=== PATIENT | female | born 1960 | race Caucasian/White ===

== ENCOUNTER 2023-06-29 09:18 | Observation (INO) ==
--- NOTE | 2023-06-08 11:10 | PAT Medication Instructions ---
Medication Instructions Date of Service June 08, 2023 Home Medications Medication Instructions Recorded blood sugar diagnostic (ChristineTouch #100 ea 12/21/21 Verio test strips) lancets 33 gauge (OneTouch Delica #100 ea 12/21/21 Lancets) hydrocortisone 1 % topical cream 1 applic topical TID PRN skin 04/26/22 (Anti-Itch (hydrocortisone)) irritation #28.4 grams metformin 1,000 mg tablet 1,000 mg PO BID #180 tabs 04/17/23 hydrocortisone 1 % topical cream (Anti-Itch (hydrocortisone)) 1 applic topical TID PRN skin irritation metformin 1,000 mg tablet 1,000 mg PO BID atorvastatin 10 mg tablet 10 mg PO Q OTHER DAY empagliflozin 25 mg tablet (Jardiance) 25 mg PO QAM lisinopril 2.5 mg tablet 2.5 mg PO QAM meloxicam 7.5 mg tablet See Rx Instructions PO DAILY PRN Pain triamcinolone acetonide 0.1 % topical ointment 1 applic topical BID PRN Rash Continue as directed atorvastatin 10 mg tablet 10 mg PO Q OTHER DAY ASK your surgeon for instructions meloxicam 7.5 mg tablet See Rx Instructions PO DAILY PRN Pain STOP taking 3 days before surgery empagliflozin 25 mg tablet (Jardiance) 25 mg PO QAM STOP taking 24 hours before surgery hydrocortisone 1 % topical cream (Anti-Itch (hydrocortisone)) 1 applic topical TID PRN skin irritation triamcinolone acetonide 0.1 % topical ointment 1 applic topical BID PRN Rash DO NOT take the morning of surgery metformin 1,000 mg tablet 1,000 mg PO BID lisinopril 2.5 mg tablet 2.5 mg PO QAM Take evening before surgery metformin 1,000 mg tablet 1,000 mg PO BID OTHERWISE NOTHING TO EAT OR DRINK AFTER MIDNIGHT Other Notes If you have any questions please call us at [phone] or [phone] or [phone] or [phone]
--- NOTE | 2023-06-13 12:53 | Anesthesiology Consultation ---
Date of Service June 13, 2023 Assessment & Plan (1) Encounter for pre-operative examination: Chart Review Chart Review: Acceptable Risk for Surgery and Patient seen in Pre Admission Testing - Check BSG AM DOS Pt currently scheduled as 23 hours observation. If surgeon decides to change patient to [facility] Day [facility], patient would be acceptable risk for TSA, pending patient is motivated, has good support and surgeon's office completes [facility] preop requirements. Per PAT appt on 06/13/23, no recent illness/disease exposures, illness related symptoms, or recent illness/disease positive tests. Will leave to surgeon's discretion if preop Covid testing needed Seen by endocrinology 06/27/21= patient seen for telemedicine visit for follow up on thyroid nodules and adrenal nodule. Thyroid nodules for more than 10 years. History of thyroid FNA multiple timesbenign. Ultrasound in 2015 showed stable thyroid nodules. Patient has had 3 CT abdomen scans done in 2008, 2009 and 2014adrenal adenoma stable in size and was consistent with adenoma. 24-hour urine catecholamines were done in 2007were normal. Diabetes managed by PCP. Will check thyroid levels. Repeat thyroid ultrasound in 1 year. No need for repeat imaging for right adrenal adenoma as it was stable on [address] scans. Do 24-hour urine metanephrines, catecholamines and creatinine. (24 hour urine metanephrines, catecholamines and creatinine done 01/2022- all WNL; thyroid ultrasound 01/2022 showed stable nodules) Teaching & Discussion Pre-Anesthesia Teaching/Discussion Notes: Instructed NPO after midnight before surgery,except medications with 15 cc of water. Medication instructions provided according to the PAT guidelines. History Surgery Operation Date: 06/29/23 08:00 Proposed Procedures p Left Total Shoulder Arthroplasty Celine - Justin Felipe, Height/Weight Height: 5 ft 5 in Weight: 76.204 kg Allergies Allergy/AdvReac Type Severity Reaction Status Date / Time morphine AdvReac Unknown Unknown Verified 06/07/23 12:24 Medications Home Medications Medication Instructions Recorded Confirmed Last Taken blood sugar diagnostic (OneTouch #100 ea 12/21/21 04/17/23 Unknown Verio test strips) lancets 33 gauge (OneTouch Delica #100 ea 12/21/21 04/17/23 Unknown Lancets) hydrocortisone 1 % topical cream 1 applic topical TID PRN skin 04/26/22 06/07/23 Unknown (Anti-Itch (hydrocortisone)) irritation #28.4 grams metformin 1,000 mg tablet 1,000 mg PO BID #180 tabs 04/17/23 06/07/23 Unknown atorvastatin 10 mg tablet 10 mg PO Q OTHER DAY 06/07/23 06/07/23 Unknown empagliflozin 25 mg tablet 25 mg PO QAM 06/07/23 06/07/23 Unknown (Jardiance) lisinopril 2.5 mg tablet 2.5 mg PO QAM 06/07/23 06/07/23 Unknown meloxicam 7.5 mg tablet See Rx Instructions PO DAILY PRN 06/07/23 06/07/23 Unk nown Pain triamcinolone acetonide 0.1 % 1 applic topical BID PRN Rash 06/07/23 06/07/23 Unknown topical ointment Past Medical History Medical History (Updated 06/13/23 @ 15:00 by Blanca Ventura PA-C) Adrenal adenoma - just monitoring - no longer following with endocrine - has had work up with 24 hour urine metanephrines, catecholamines, and creatinine (01/2022 all WNL) Arm numbness related to rotator cuff Diabetes mellitus Hgb A1C 6.6 in 04/2023 History of COVID-24 Apr 2022- no current issues HLD (hyperlipidemia) On statin for DM Denies history of hyperlipidemia Hypertension Mass of soft tissue of left upper extremity related to rotator cuff Multinodular thyroid just monitoring > biopsy was benign (was following with endocrine) (nodules have stayed stable in size) Rotator cuff tear at present Exercise / Class Metabolic Activity II 4-5 Yardwork/Stairs/Walk up hill (one flight of stairs - no chest pain or SOB ) Past Family History Family History Mother Asthma Cancer basal cell Heart disease Grandmother (Maternal) Heart disease Grandfather (Paternal) Heart disease Aunt Breast cancer Past Surgical History Surgical History H/O colonoscopy H/O dilation and curettage H/O total hysterectomy still has 1 ovary H/O tubal ligation H/O umbilical hernia repair History of bunionectomy of right great toe History of section twins History of esophagogastroduodenoscopy History of surgery of liver tumor removal at Hx of cholecystectomy Status post right foot surgery hammertoe correction R 5th toe Past Anesthesia History No Hx of Anesthesia Complications and No Family Hx of Anesthesia Complications History of PONV No Hx of PONV and No Hx of Motion Sickness Social History Smoking Status: Former smoker Do You Dip or Chew Tobacco: No Smoking End Date: 30 yrs ago Hx Alcohol Use: Yes Alcohol type: wine alcohol intake frequency: holidays/special occasions only Hx Substance Use: No substance use type: does not use Review of Systems - Chronic mild cough- feels due to allergies (non productive) (only occ) Patient denies chest pain, shortness of breath, dyspnea on exertion, reflux, wheezing, palpitations. No hx of seizures, stroke, OK, apnea/snoring. No hx of blood clots or blood transfusions Physical Exam Vital Signs VITALS BP 131/72 P 79 TEMP 98.1 SP02 96% RESP 16 Constitutional no acute distress ENMT Mouth: no TMJ clicking Thyromental Distance: > or= 3.5 Finger Breadths (3.5) Mallampati Class: III Missing molars Neck neck extension not limited Respiratory normal respiratory effort; no respiratory distress Auscultation: lungs clear to auscultation bilaterally; no wheezes Cardiovascular Rate/Rhythm: regular rate and regular rhythm Heart Sounds: no murmur Vessels: no carotid bruit Musculoskeletal Spine: no pain with cervical ROM Extremities: extremities normal to inspection Psychiatric Orientation: alert Lab Results Anesthesia Preop Results Results Anesthesia Widget: WBC 8.65 K/ul (4.8-10.8) 06/13/23 Hgb 14.8 g/dl (12.0-16.0) 06/13/23 Hct 47.0 % (37.0-47.0) 06/13/23 Plt 279 K/uL (130-400) 06/13/23 Na 140 mmol/L (136-145) 06/13/23 K 4.9 mmol/L (3.5-5.1) 06/13/23 Cl 106 mmol/L (98-107) 06/13/23 CO2 29 mmol/L (21-32) 06/13/23 BUN 16 mg/dl (6-23) 06/13/23 Creat 0.61 mg/dl (0.6-1.2) 06/13/23 Glucose Level 94 mg/dl (70-99(Fasting)) 06/13/23 PT 10.2 Seconds (9.0-12.0) 06/13/23 PTT 26 Seconds (21-31) 06/13/23 INR 0.9 (0.9-1.1) 06/13/23 HA1c 6.6 % (4.5-5.6) H 04/16/23 Blood Type O Positive 06/13/23 Antibody Screen NEGATIVE 06/13/23 Testing Electrocardiogram Date: 06/13/23 Findings: + NSR @ (72 bpm ) Left anterior fascicular block Chest X-Ray Date: 06/13/23 Findings: + NAD
[~2023-06-29 09:18] MED LIST: BUPIVACAINE 0.5 % 5 MG/1 ML PF 10ML VIAL ONE
[2023-06-29] MEDS ORDERED: ONDANSETRON INJ 2 MG/ML 2 ML VIAL ONE (09:24)
[2023-06-29] MEDS ORDERED: fentaNYL citrate PF 100 MCG/2 ML VIAL ONE (09:24)
[2023-06-29] MEDS ORDERED: MIDAZOLAM HCL 1 MG/ML 2ML VIAL ONE (09:24)
[2023-06-29] MEDS ORDERED: PROPOFOL IV EMULSION 10 MG/ML 20 ML VIAL IV ONE (09:24)
[2023-06-29] MEDS: FAMOTIDINE 20 MG TAB PO SCH (09:57)
[2023-06-29] MEDS: ACETAMINOPHEN 500 MG TAB PO SCH ×2 (09:57→16:46)
[2023-06-29] MEDS: GABAPENTIN 600 MG DOSE PO SCH (09:57)
[2023-06-29] MEDS: dexAMETHasone**PF** 10 MG/ML VIAL IV SCH (10:12)
[2023-06-29] MEDS: LR 60ML/HR IV SCH (10:17)
--- NOTE | 2023-06-29 10:23 | History & Physical Bridge Note ---
Date of Service June 29, 2023 History & Physical Bridge Note I have examined the patient, reviewed the History & Physical and in the interval since the performance of the History & Physical I have noted the following changes of clinical significance: no changes noted
[2023-06-29] MEDS ORDERED: ONDANSETRON INJ 2 MG/ML 2 ML VIAL IV PRN ×2 (10:49→15:21)
[2023-06-29] MEDS ORDERED: ATROPINE SULFATE 0.1 MG/ML 10ML SYR IV PRN (10:49)
[2023-06-29] MEDS ORDERED: ePHEDrine sulfate 50 MG/ML AMP IV PRN (10:49)
[2023-06-29] MEDS: TRANEXAMIC ACID 1,000 MG **IV Pre-op IV SCH (10:52)
[2023-06-29] MEDS: ceFAZolin 2000MG 2,000 MG/15 ML SYR IV SCH ×2 (11:12→18:05)
[2023-06-29] MEDS ORDERED: PHENYLEPHRINE HCL 10 MG/ML VIAL ONE (12:08)
[2023-06-29] MEDS ORDERED: LIDOCAINE 2% 2 ML VIAL/AMP(20MG/ML) INFIL ONE (12:08)
[2023-06-29] MEDS: TRANEXAMIC ACID 1,000 MG **IV Intra-op IV SCH (12:16)
[2023-06-29] MEDS: ROPIV 0.5% 246mg, Ketorolac 30mg, EPINEPHrine 0.5mg in NSS INFIL SCH (12:16)
[2023-06-29] MEDS: ORTHO JOINT ANESTHETIC ONE (12:17)
--- NOTE | 2023-06-29 12:18 | Operative Report ---
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 A tenodesis was opted. This was a separate and distinct portion of the procedure. For these reasons, a CPT code modifier 59 will be added to this case. Implants used: I used a Biomet Comprehensive reverse total shoulder arthroplasty system with a size 11 press fit micro humeral stem, a +6 offset humeral tray and a standard humeral bearing, a 25 mm baseplate with a 6.5 mm central screw and superior and inferior locking screws, and a size 36 mm eccentric glenosphere. Taya arrived at [facility] for the above procedure. She was seen in the preoperative holding area and the operative extremity was identified and signed. She was given a preoperative antibiotic, TXA, and an interscalene nerve block. She was taken back to the operating room, laid on table in supine position, and put under general anesthesia. She was then put into the beachchair position. The shoulder was then prepped and draped in sterile fashion. A timeout was done and the patient and the operative extremity was properly identified. A deltopectoral approach was used. Dissection was taken down through the fascia and the deltoid was retracted laterally and the conjoined tendon was retracted medially. The anterior shoulder was exposed. The biceps groove was opened up and the biceps tendon was examined extensively. The biceps tendon demonstrated enlargement and inflammatory changes consistent with longstanding inflammation in the context of osteoarthritis and cuff arthropathy. The long head of the biceps tendon was then tenodesed to the upper border of the pectoralis major. This was a separate and distinct portion of the procedure. The subscapularis was then directly released off the lesser tuberosity with a peel technique. The inferior capsule was released and the humeral head was dislocated. A canal finding reamer was sent down the center of the humeral canal. Sequential reaming up to a size 11 reamer was done. Off that reamer, a proximal humeral resection guide was placed. The proximal humerus was resected at 135 of inclination and 25 of retroversion. Osteophytes were then removed and the glenoid was exposed. Time was spent doing a complete capsular and labral release. The glenoid guide was then placed in the inferior aspect of the glenoid. A 3.2 mm Steinmann pin was then placed into the glenoid vault at 10 of inclination. The glenoid baseplate was then reamed. The final size 25 mm baseplate was then impacted in the place. A 6.5 mm central screw was then placed followed by superior and inferior locking screws. A 36 mm eccentric glenosphere was then impacted into place. Surrounding soft tissues were then injected with 100 cc an orthopedic pain control cocktail. The proximal humerus was then exposed. Sequential broaching of the humerus up to a size 11 broach was done. Off that broach a +6 offset humeral tray was trialed. The shoulder was then reduced, brought through a full range of motion, and felt to be stable. The shoulder was then dislocated and the broach was removed. The final size 11 micro press-fit humeral stem was then impacted into place. A standard humeral bearing was then snapped onto a +6 offset humeral tray. The humeral tray was then impacted onto the humeral stem. The shoulder was once again reduced, brought through a full range of motion, and felt to be stable. The subscapularis was poor quality was unable to be repaired. A dilute betadyne lavage was then done for 3 minutes. The joint was then irrigated with normal saline solution. Hemostasis was obtained. The interval was closed with 2-0 Vicryl suture. The skin was then closed with 2-0 Vicryl and nisha. A Silverlon dressing was placed and the arm was rested in a regular arm sling. She was then extubated and transferred to a hospital bed. She taken to the postanesthesia care unit in stable condition. She tolerated the procedure well. Justin Gorman PA-C, was present for the entire procedure. He was critical for patient positioning, prepping, draping, retraction exposure, wound closure and application of sterile dressing. I attest to the content of the Intraoperative Record and any orders documented therein. Any exceptions are noted below.
[2023-06-29] MEDS: fentaNYL citrate PF 100 MCG/2 ML VIAL IV PRN (12:50)
--- NOTE | 2023-06-29 13:18 | XRay Report ---
XR shoulder LT min 2V routine CLINICAL HISTORY: Post shoulder surgery COMPARISON STUDY: None. FINDINGS: Status post reverse left total shoulder arthroplasty. The hardware is intact. No fracture o r dislocation. Skin nisha are in place. IMPRESSION: Status post reverse left total shoulder arthroplasty. No evidence for hardware complicat ion. ACT 112: Negative or not required by law. Electronically signed by: Shaheen Pearl M.D. 06/29/2023 1:16 PM
--- NOTE | 2023-06-29 13:22 | Anesthesiology Progress Note ---
Date of Service June 29, 2023 Anesthesia Post Procedure Vital Signs Vital Signs: Temp Pulse Pulse Resp BP Pulse Ox O2 Del Method 06/29/23 13:15 86 19 133/76 93 Room Air 06/29/23 13:05 88 21 137/76 95 Room Air 06/29/23 12:55 85 16 141/77 H 100 Oxymask 06/29/23 12:45 90 15 138/72 100 Oxymask 06/29/23 12:35 97.0 F L 91 H 15 137/71 97 Oxymask 06/29/23 09:48 97.5 F L 85 16 162/97 H 97 Room Air O2 Flow Rate 06/29/23 13:15 06/29/23 13:05 06/29/23 12:55 6 06/29/23 12:45 6 06/29/23 12:35 6 06/29/23 09:48 Pain Intensity Left Shoulder: Pain Intensity: 5 Transfer of Care Handoff Completed per policy Notes Mental Status: alert / awake / arousable and participated in evaluation Patient Amnestic to Procedure: Yes Nausea / Vomiting: adequately controlled Pain: adequately controlled Airway Patency, RR, SpO2: stable & adequate BP & HR: stable & adequate Hydration State: stable & adequate Anesthetic Complications: no major complications apparent and Pt Satisfied with anesthetic care
[2023-06-29] MEDS ORDERED: METOCLOPRAMIDE HCL INJ 5 MG/ML 2 ML VIAL IV PRN (15:21)
[2023-06-29] MEDS ORDERED: HYDROmorphone INJ 0.5 MG/0.5 ML SYR IV PRN (15:21)
[2023-06-29] MEDS ORDERED: MAGNESIUM HYDROXIDE SUSP 30 ML UDC PO PRN (15:21)
[2023-06-29] MEDS ORDERED: TRIAMCINOLONE ACET 0.1% OINT 15 GM TUBE TOP PRN (15:21)
[2023-06-29] MEDS ORDERED: oxyCODONE HCL IR 5 MG TAB (IMMEDIATE RELEASE) PO PRN (15:21)
[2023-06-29] MEDS ORDERED: NALOXONE HCL 0.4 MG/1 ML VIAL/CARP IV PRN (15:21)
[2023-06-29] MEDS ORDERED: bisacodyL 10 MG SUPP PR PRN (15:21)
[2023-06-29] MEDS ORDERED: PHARMACY GLYCEMIC MGMT CONSULT PRN (15:21)
[2023-06-29] MEDS ORDERED: HYDROCORTISONE 1% CRM 30 GM TUBE EXT PRN (15:39)
[2023-06-29] MEDS ORDERED: GLUCOSE 40% GEL 15 GM TUBE PO PRN (15:45)
[2023-06-29] MEDS ORDERED: CARBOHYDRATES FOR HYPOGLYCEMIA PO PRN (15:45)
[2023-06-29] MEDS ORDERED: GLUCOSE 10 TAB/TUBE PO PRN (15:45)
[2023-06-29] MEDS ORDERED: DEXTROSE 50% 50 ML SYRINGE IV PRN (15:45)
[2023-06-29] MEDS ORDERED: GLUCAGON FOR INJ 1 MG VIAL IM PRN (15:45)
--- NOTE | 2023-06-29 15:48 | Pharmacy Report ---
Pharmacy Glycemic Short Note 2 - Date of Service June 29, 2023 - Glycemic Short BSG Results (Last 24 hours): 06/29/23 06/29/23 09:40 12:39 POC Glucose 109 H 152 H OUTPATIENT ANTIDIABETIC REGIMEN: * Metformin 1 g PO BIDM * Jardiance 25 mg PO daily HbA1c: 6.6% (04/16/23) ASSESSMENT: * VELVET is a 63 year old female POD #0 s/p left total shoulder arthroplasty * Received 10 mg IV dexamethasone in OR * Preop BSG of 109 mg/dL and postop BSG of 152 mg/dL * Patient with well-controlled T2DM as an outpatient on oral agents * Despite good control, patient does have BSG > 150 after surgery, so will start low-dose basal insulin with Novolog weight-based parameters of 2.5. PLAN FOR INPATIENT GLYCEMIC CONTROL: * Hold outpatient oral diabetes medications * Basal insulin * Lantus 10 units SC x 1 * Bolus insulin * NovoLog per scale ACHS or Q6hrs while NPO * Goal Range: Low 110 mg/dL - High 140 mg/dL * Correction Factor: 25 mg/dL/unit * Nutritional / Prandial insulin per carb ratio of 1 unit per 8 grams CHO consumed
[2023-06-29] MEDS: SODIUM CHLORIDE 0.9% 1,000 ML IV SCH (16:45)
[2023-06-29] MEDS: KETOROLAC 30 MG/ML VIAL IV SCH (16:46)
[2023-06-29] MEDS: ATORVASTATIN 10 MG TAB PO SCH (16:46)
[2023-06-29] MEDS: INSULIN ASPART PER UNIT CHARGE SC SCH (16:51)
[2023-06-29] MEDS: LANTUS PER UNIT CHARGE SC ONE (16:52)
[2023-06-29] MEDS: SENNA 8.6 MG TAB PO SCH (20:25)
[2023-06-29] MEDS: DOCUSATE SODIUM 100 MG CAP PO SCH (20:28)
--- NOTE | 2023-06-30 07:21 | Orthopedic Progress Note ---
Date of Service June 30, 2023 Assessment & Plan (1) Status post reverse total replacement of left shoulder: Overall she doing very well. She is not having much pain in the left shoulder. She will be seen by physical therapy today for ambulation and range of motion exercises. She can be discharged home later today. She will follow-up orthopedics in 2 weeks. Tiffani Allred was seen and examined at bedside this morning. Overall she is doing well. She is not having much pain in the left shoulder. She was able to get some sleep last night. She is no complaints.. Review of Systems All systems reviewed & are unremarkable except as noted in HPI & below. Physical Exam On physical examination left shoulder, the dressing is clean and dry. She is active motion of her hand and her wrist. She is wearing her sling as instructed.. Results & Data Results & Data Laboratory Results . Diagnostic Findings Postoperative x-rays of the left shoulder show the prosthesis to be in anatomic alignment without any evidence of fracture complication, or loosening.. PG Care Time/CCT Total # of Minutes Spent Total Time Spent with Patient: Total time spent is greater than 50% in coordination of care (as documented) at patient's floor/unit and/or counseling patient: Coding Level of Care Code 45024 Post Operative Follow-Up Diagnoses Status post reverse total replacement of left shoulder Z96.612
--- NOTE | 2023-06-30 07:22 | Discharge Summary ---
Date of Service June 30, 2023 Principal Diagnosis Same as "Discharge Diagnosis" noted below under Discharge Instructions. Discharge Exam On physical examination left shoulder, the dressing is clean and dry. She is active motion of her hand and her wrist. She is wearing her sling as instructed.. Discharge Data Procedures Performed Operation Date: 06/29/23 11:00 Actual Procedures p Left Total Shoulder Arthroplasty Reverse(Left) - Justin Felipe DO Ordered Studies 06/29/23 05:00 US - OR guided needle placemen Routine Hospital Course (1) Status post reverse total replacement of left shoulder: On June 29, 2023 Taya arrived at [facility] and underwent a left reverse shoulder replaced without complication. She had a general anesthetic with a left interscalene nerve block. Postoperatively she was placed in a sling and transferred to the general orthopedic floors. Her hospital course was uneventful. On postop day #1, her vital signs were stable and her pain was well-controlled. She was able to participate well with physical therapy doing ambulation and range of motion exercises. She was then discharged home. She will follow-up orthopedics in 2 weeks. PG Care Time/CCT Total # of Minutes Spent Total Time Spent with Patient: Total time spent is greater than 50% in coordination of care (as documented) at patient's floor/unit and/or counseling patient: Discharge Plan Discharge Items Patient Disposition: Home - Self-Care Reason For Visit: Degenerative Joint Disease Left Shoulder Discharge Diagnosis: Left reverse shoulder replacement Activity: As commented below Non-emergency contact: Surgeon Call non-emergency contact if: your wound has increased redness and your wound has increased drainage Follow-up/Referrals: Mishel Bai DO [Primary Care Provider] - Diet: Regular Addtl Attending Provider Instructions: Activity and Therapy Recommendations: * If you are using [facility] then therapy will be provided at your home until they feel you have accomplished all of your goals. * If you are using [facility] then Physical Therapy will be provided until they feel you are ready to start Outpatient Physical Therapy. * If you are not using home therapy then Outpatient Physical Therapy should start about 3-5 days from your day of surgery. Therapy will last about 8-12 weeks * Wear your sling for 3 weeks, unless otherwise instructed. You may remove your sling to shower and to dress, but otherwise, you should be in your sling at all times, including while sleeping * The shoulder replacement is very stable and you can use your hand while in the sling * You were shown a series of exercises in the hospital. Do these exercises daily including the exercises you were shown in physical therapy. Medications: * Narcotic You will likely be sent home from the hospital with a prescription for the narcotic pain medication that worked best throughout your stay. * Cefadroxil -take the antibiotic twice a day for 10 days to help prevent infection. * Other medications may be prescribed for specific circumstances. If you have any questions, please call the office at . * Resume previous home medications unless otherwise instructed Dressing Care: Leave the Silverlon dressing in place for 7 days. After 7 days you may remove the dressing. If the incision is not draining then you may leave the nisha open to air. If there is a little bit of drainage or if the nisha are getting stuck on your clothing then cover the incision with a dry dressing. The nisha will be removed at your 2 week follow-up appointment. Showering: You may shower with the Silverlon dressing in place. Do not let the shower spray hit the dressing directly. Pat the Silverlon dressing dry. If the dressing becomes wet underneath, then simply remove the dressing. Keep the incision dry until you are 7 days out from the day of surgery. After 7 days you may remove the Silverlon dressing and shower with the nisha exposed. Let soapy water run over the nisha and pat them dry. Do not scrub or soak the incision. Things To Watch For: * Drainage from the incision site that occurs more than one week after your surgery. * Increased redness at the incision site. * Fever above 102 degrees Fahrenheit. * Unusual chest pain or shortness of breath. * Call [facility] at with any of the above problems Follow-Up Visit: Follow-up with Dr. Felipe's PA (Justin Gorman) 2-3 weeks after your day of surgery . He will remove your nisha and answer any questions. If you have any additional questions or concerns, Dr Felipe is usually in the office at the same time and will be available An appointment was probably scheduled when you signed-up for surgery in the office. If you have any questions call More detailed instructions as well as Frequently Asked Questions were provided in a folder by our office when you signed-up for surgery. Please review these instructions when you get home. If you have any further questions or concerns, please feel free to call the office at [phone] Pending Studies at Discharge: No Stand-Alone Forms: [facility] Medications and DC Order Prescriptions: New oxycodone 5 mg Tablet 5 mg PO Q4H PRN (Reason: pain) Qty: 30 0RF cefadroxil 500 mg capsule 500 mg PO BID 10 Days Qty: 20 0RF Continued Mounjaro 2.5 mg/0.5 mL pen injector 2.5 mg subcut .weekly Qty: 2 0RF metformin 1,000 mg tablet 1,000 mg PO BID Qty: 180 0RF hydrocortisone [Anti-Itch (HC)] 1 % cream 1 applic topical TID PRN (Reason: skin irritation) Qty: 28.4 0RF (DME) lancets [OneTouch Delica Lancets] 33 gauge misc See Rx Instructions .Route Qty: 100 3RF Rx Instructions: As directed; once daily e11.9 (DME) OneTouch Verio test strips Strip See Rx Instructions .Route Qty: 100 3RF Rx Instructions: As directed; once daily dx: e11.9 oxybutynin chloride 5 mg tablet 5 mg PO DAILY Qty: 30 2RF atorvastatin 10 mg tablet 10 mg PO Q OTHER DAY meloxicam 7.5 mg tablet See Rx Instructions PO DAILY PRN (Reason: Pain) Rx Instructions: Take 1-2 pills once daily for pain. triamcinolone acetonide 0.1 % ointment 1 applic topical BID PRN (Reason: Rash) lisinopril 2.5 mg tablet 2.5 mg PO QAM Jardiance 25 mg tablet 25 mg PO QAM Discharge Orders: Discharge Order (Routine); Ordered 06/30/23 Ordered By: Justin Felipe Admission Data Admit Date/Time: 06/29/23 12:43 Attending Provider: Justin Felipe Admit Provider: Justin Felipe Primary Care Provider: Mishel Bai
[2023-06-30] MEDS: MULTIVITAMIN TAB PO SCH (08:13)
[2023-06-30] MEDS: lisinopril 2.5 MG TAB PO SCH (08:13)
[2023-06-30] MEDS: oxyBUTYnin chloride 5 MG TAB PO SCH (08:13)
== END 2023-06-30 11:50 | disposition home or self-care (01) ==
LOC: PACUINP 09:18 → ASU 09:18 → 3E 15:08

== ENCOUNTER 2024-02-08 09:35 | Observation (INO) ==
--- NOTE | 2024-01-08 10:20 | PAT Medication Instructions ---
Medication Instructions Date of Service January 08, 2024 Home Medications Medication Instructions Recorded blood sugar diagnostic (ChristineTouch #100 ea 12/21/21 Verio test strips) lancets 33 gauge (OneTouch Delica #100 ea 12/21/21 Lancets) oxybutynin chloride 5 mg tablet 5 mg PO DAILY #30 tabs 06/21/23 nystatin 100,000 unit/gram topical 1 applic topical DAILY #60 grams 07/05/23 powder triamcinolone acetonide 0.1 % 1 applic topical BID PRN Rash #80 08/17/23 topical ointment grams cholecalciferol (vitamin D3) 25 25 mcg PO DAILY 3 months #90 caps 09/18/23 mcg (1,000 unit) capsule atorvastatin 10 mg tablet 10 mg PO QPM #90 tabs 10/24/23 tirzepatide 7.5 mg/0.5 mL 7.5 mg (0.5 mL) subcut .weekly #2 12/12/23 subcutaneous pen injector mL (Mounjaro) metformin 1,000 mg tablet 1,000 mg PO BID #180 tabs 01/03/24 oxybutynin chloride 5 mg tablet 5 mg PO DAILY nystatin 100,000 unit/gram topical powder 1 applic topical DAILY triamcinolone acetonide 0.1 % topical ointment 1 applic topical BID PRN cholecalciferol (vitamin D3) 25 mcg (1,000 unit) capsule 25 mcg PO DAILY atorvastatin 10 mg tablet 10 mg PO QPM tirzepatide 7.5 mg/0.5 mL subcutaneous pen injector (Mounjaro) 7.5 mg (0.5 mL) subcut .weekly lisinopril 5 mg tablet 5 mg PO DAILY metformin 1,000 mg tablet 1,000 mg PO BID STOP 7 days before surgery tirzepatide 7.5 mg/0.5 mL subcutaneous pen injector (Mounjaro) 7.5 mg (0.5 mL) subcut .weekly STOP taking 24 hours before surgery nystatin 100,000 unit/gram topical powder 1 applic topical DAILY triamcinolone acetonide 0.1 % topical ointment 1 applic topical BID PRN DO NOT take the morning of surgery oxybutynin chloride 5 mg tablet 5 mg PO DAILY cholecalciferol (vitamin D3) 25 mcg (1,000 unit) capsule 25 mcg PO DAILY lisinopril 5 mg tablet 5 mg PO DAILY metformin 1,000 mg tablet 1,000 mg PO BID Take morning of surgery NOTHING TO EAT OR DRINK AFTER MIDNIGHT. Take evening before surgery atorvastatin 10 mg tablet 10 mg PO QPM metformin 1,000 mg tablet 1,000 mg PO BID Other Notes If you have any questions please call us at [phone] or [phone] or [phone] or [phone]
--- NOTE | 2024-01-14 15:13 | Anesthesiology Consultation ---
Date of Service January 14, 2024 Assessment & Plan (1) Encounter for pre-operative examination: - Check BSG AM DOS - Infectious disease screening: Per assessment on 01/14/24: No known recent infectious disease contacts or current infectious disease symptoms. - Outpatient joint assessment: Pt currently scheduled for inpatient pathway. If surgeon requests review for outpatient joint pathway, patient is not recommended candidate for outpatient joint program from anesthesia standpoint from based on available information. - Tirzapatide instructions: Patient informed by PAT to stop 7 days prior to surgery- voiced understanding. DOS 02/08/24. Advised last dose to be 01/28/24. - Vascular visit (01/03/24): "Patient has chronic venous insufficiency resulting in right > left leg aching/fatigue and intermittent cramping. Symptoms longstanding and has not responded to weight loss, leg elevation and exercise. Recent venous reflux study notable for dilated right GSV with pathologic reflux. Borderline reflux in left GSV. Feel she would potentially benefit from treatment of her superficial venous disease, particular on the right. Recommend additional trial of regular compression stocking use. If symptoms persist she would be interested and proceeding with right GSV adhesive ablation. May need additional ultrasound guided foam sclerotherapy for any residual varicosities. Consider left GSV ablation pending results of treatment of right leg." - Cardiology visit (10/24/23): "She has significant varicose veins and spider veins. Most consistent with chronic venous insufficiency. She also has some symptoms associated with this. She is interested in further evaluation. I will have her undergo bilateral lower extremity venous Doppler to evaluate for reflux. If significant reflux then she may be a candidate for venous ablation which should help with her symptoms. She should also try to exercise regularly, control her blood pressure, limit sodium intake, limit duration on her feet and elevate her legs when resting, and if she can exercise enough to lose some weight this would also be helpful.. Moderate left ventricular hypertrophy.. IVSD 1.58 cm, LVPWD 1.38 cm. This is most consistent with uncontrolled hypertension. She takes a very low-dose of lisinopril and her systolic blood pressure appears controlled. Her diastolic blood pressure is elevated suggesting that frequently she has elevated blood pressures and her heart is stiff. She does have grade 1 diastolic dysfunction. Primary treatment for the LVH is blood pressure control and weight reduction. We will follow with surveillance echocardiogram and should the LV thickness continue to increase we would have to consider less likely diagnosis of hypertrophic cardiomyopathy.. HLD (hyperlipidemia).. Patient is considered high risk (diabetes). High intensity statin therapy is recommended by current guidelines.. I have suggested that she begin 10 mg every day and that we can titrate up the dose as needed to achieve the LDL reduction target.. HARO (dyspnea on exertion).. Unclear etiology. Unlikely that the mild mitral regurgitation is causing the profound dyspnea. Certainly, sounds like her stress test is highly suggestive of significant deconditioning. Moreover, the very elevated blood pressure may be the cause of her dyspnea. Until I have the interpretation of the data I am not clear if she has underlying ischemia or not. I will await those results. In the meantime we need to more aggressively treat her blood pressure without overtreating and causing hypotension. Further recommendations pending results of the stress test.. While her resting blood pressure on a low-dose of lisinopril is actually pretty good, she did have an exaggerated blood pressure response to minimal exercise. This suggests that oftentimes throughout her day her blood pressure is elevated and we are just unaware. I have recommended that we increase the lisinopril to 5 mg daily and reassess her blood pressure. Will also await the results of the stress test but at some point it may be reasonable to have her go back on the treadmill while taking maximum tolerated antihypertensive regimen and see if we more effectively blunt her blood pressure response to exercise." - Cardiology workload note (01/15/24): Cardiology made aware of upcoming surgery. Cardiac response: "low risk stress. No further cardiac testing is necessary" Chart Review Chart Review: Acceptable Risk for Surgery and Patient seen in Pre Admission Testing Teaching & Discussion Pre-Anesthesia Teaching/Discussion Notes: Instructed NPO after midnight before surgery,except medications with 15 cc of water. Medication instructions provided according to the PAT guidelines. History Surgery Operation Date: 02/08/24 11:00 Proposed Procedures p Right Total Shoulder Arthroplasty Reverse - Justin Felipe DO Height/Weight Height: 5 ft 5 in Weight: 79.5 kg Allergies Allergy/AdvReac Type Severity Reaction Status Date / Time morphine AdvReac Unknown Patient Verified 01/14/24 15:39 requests avoiding Medications Home Medications Medication Instructions Recorded Confirmed Last Taken blood sugar diagnostic (OneTouch #100 ea 12/21/21 01/03/24 Unknown Verio test strips) lancets 33 gauge (OneTouch Delica #100 ea 12/21/21 01/03/24 Unknown Lancets) oxybutynin chloride 5 mg tablet 5 mg PO DAILY #30 tabs 06/21/23 01/03/24 Unknown nystatin 100,000 unit/gram topical 1 applic topical DAILY #60 grams 07/05/23 01/03/24 Unknown powder triamcinolone acetonide 0.1 % 1 applic topical BID PRN Rash #80 08/17/23 01/03/24 Unknown topical ointment grams cholecalciferol (vitamin D3) 25 25 mcg PO DAILY 3 months #90 caps 09/18/23 01/03/24 Unknown mcg (1,000 unit) capsule atorvastatin 10 mg tablet 10 mg PO QPM #90 tabs 10/24/23 01/03/24 Unknown lisinopril 5 mg tablet 5 mg PO DAILY 01/03/24 01/03/24 Unknown metformin 1,000 mg tablet 1,000 mg PO BID #180 tabs 01/03/24 Unknown tirzepatide 7.5 mg/0.5 mL 7.5 mg (0.5 mL) subcut .weekly #2 01/14/24 Unknown subcutaneous pen injector mL (Charles) Past Medical History Medical History Adrenal adenoma - just monitoring - no longer following with endocrine - has had work up with 24 hour urine metanephrines, catecholamines, and creat inine (01/2022 all WNL) Diabetes History of COVID-24 Apr 2022- no current issues HLD (hyperlipidemia) Noted per records Patient denies indicating that statin is for hx DM Hypertension Left anterior fascicular block (LAFB) Follows with [facility] cardio/Dr Britton Moderate left ventricular hypertrophy Multinodular thyroid s/p "benign" biopsy, stable Varicose vein of leg [facility] vascular visit 01/03/24 Exercise / Class Metabolic Activity II 4-5 Yardwork/Stairs/Walk up hill (one FS: No CP, no SOB) Past Family History Family History Mother Asthma Cancer basal cell Heart disease Grandmother (Maternal) Heart disease Grandfather (Paternal) Heart disease Aunt Breast cancer Past Surgical History Surgical History H/O colonoscopy H/O dilation and curettage H/O total hysterectomy + USO H/O tubal ligation H/O umbilical hernia repair History of bunionectomy of right great toe History of section twins History of esophagogastroduodenoscopy History of surgery of liver tumor removal at Hx of cholecystectomy Status post reverse total arthroplasty of left shoulder (06/2023) Status post right foot surgery hammertoe correction R 5th toe Past Anesthesia History No Family Hx of Anesthesia Complications and Other (Slow to wake) History of PONV No Hx of PONV and No Hx of Motion Sickness Social History Smoking Status: Former smoker Do You Dip or Chew Tobacco: No Smoking End Date: quit 32 yrs ago Hx Alcohol Use: No Alcohol type: wine alcohol intake frequency: holidays/special occasions only Hx Substance Use: No substance use type: does not use Review of Systems Rare palpitations. Patient denies chest pain, shortness of breath, dyspnea on exertion, fever, chills, cough, wheezing. Physical Exam Vital Signs BP 133/78 P 72 TEMP 97.8 SP02 97%RA RESP 16 Physical Full cervical extension range of motion. Full TMJ range of motion. TMD > 3.5 finger breaths Mallampati Score III Dentition: intact Lungs: clear throughout to auscultation Cardiac: regular rate and rhythm, no murmurs noted Spine: normal Carotid arteries: negative bruit Extremities: no LE edema Lab Results Anesthesia Preop Results Results Anesthesia Widget: WBC 8.78 K/ul (4.8-10.8) 01/14/24 Hgb 14.4 g/dl (12.0-16.0) 01/14/24 Hct 43.2 % (37.0-47.0) 01/14/24 Plt 288 K/uL (130-400) 01/14/24 Na 139 mmol/L (136-145) 01/14/24 K 4.0 mmol/L (3.5-5.1) 01/14/24 Cl 106 mmol/L (98-107) 01/14/24 CO2 26 mmol/L (21-32) 01/14/24 BUN 15 mg/dl (6-23) 01/14/24 Creat 0.54 mg/dl (0.6-1.2) L 01/14/24 Glucose Level 84 mg/dl (70-99(Fasting)) 01/14/24 PT 10.2 Seconds (9.0-12.0) 01/14/24 PTT 25 Seconds (21-31) 01/14/24 INR 0.9 (0.9-1.1) 01/14/24 HA1c 5.9 % (4.5-5.6) H 01/14/24 Blood Type O Positive 01/14/24 Antibody Screen NEGATIVE 01/14/24 Testing Electrocardiogram Date: 06/13/23 NSR at 72bpm. LAFB. Chest X-Ray Date: 06/13/23 FINDINGS: Cholecystectomy. Degenerative changes of the shoulders and spine. No pneumothorax, pleural effusion or airspace consolidation. Bones appear grossly intact. IMPRESSION: No acute process. Echocardiogram Date: 07/20/23 EF 55-60%. LV wall motion normal. Grade I DD. Moderate cLVH. Mild MR. Stress Test Date: 10/16/23 Impression: 1. Negative exercise stress ECG for ischemia at 102% MPHR. 2. No arrhythmia. 3. Appropriate blood pressure response to exercise. 4. No chest pain reported. 5. Poor exercise tolerance. 4.6 METS.
--- NOTE | 2024-02-07 10:33 | History & Physical Report ---
Date of Service February 07, 2024 Assessment & Plan (1) Right rotator cuff tear arthropathy: We will proceed with a right reverse shoulder arthroplasty. Postoperatively she will be placed in a sling and kept overnight in the hospital for postop medical management. She plans to go to outpatient physical therapy after discharge. History of Present Illness Chief Complaint: Cuff tear arthropathy the right shoulder. Primary Care Provider: Mishel Bai DO Bain is a pleasant 63-year-old female who I did a left reverse shoulder replacement on 6 months ago. She has done very well with that. Unfortunately, she is really struggling with the right shoulder. She is having trouble doing things away from her body and up over her head. She examined like a large rotator cuff tear. MRI and clinical examination were diagnostic for massive retracted rotator cuff tear and cuff tear arthropathy of the right shoulder. After failing conservative treatment, she has elected proceed with a right reverse shoulder arthroplasty. Allergies Allergy/AdvReac Type Severity Reaction Status Date / Time morphine AdvReac Unknown Patient Verified 01/14/24 15:39 requests avoiding Home Medications Medication Instructions Recorded Confirmed Type blood sugar diagnostic (OneTouch #100 ea 12/21/21 01/03/24 Rx Verio test strips) lancets 33 gauge (OneTouch Delica #100 ea 12/21/21 01/03/24 Rx Lancets) oxybutynin chloride 5 mg tablet 5 mg PO DAILY #30 tabs 06/21/23 01/03/24 Rx nystatin 100,000 unit/gram topical 1 applic topical DAILY #60 grams 07/05/23 01/03/24 Rx powder triamcinolone acetonide 0.1 % 1 applic topical BID PRN Rash #80 08/17/23 01/03/24 Rx topical ointment grams cholecalciferol (vitamin D3) 25 25 mcg PO DAILY 3 months #90 caps 09/18/23 01/03/24 Rx mcg (1,000 unit) capsule atorvastatin 10 mg tablet 10 mg PO QPM #90 tabs 10/24/23 01/03/24 Rx lisinopril 5 mg tablet 5 mg PO DAILY 01/03/24 01/03/24 History metformin 1,000 mg tablet 1,000 mg PO BID #180 tabs 01/03/24 Rx tirzepatide 10 mg/0.5 mL 10 mg (0.5 mL) subcut .weekly #6 mL 01/28/24 Rx subcutaneous pen injector (Mounjaro) tirzepatide 7.5 mg/0.5 mL 7.5 mg (0.5 mL) subcut .weekly #2 02/01/24 Rx subcutaneous pen injector mL (Mounjaro) Past Med/Surg History Problem List External nasal lesion Urinary incontinence Encounter for pre-operative examination Medical History Diabetes HLD (hyperlipidemia) Noted per records Patient denies indicating that statin is for hx DM Multinodular thyroid s/p "benign" biopsy, stable Left anterior fascicular block (LAFB) Follows with [facility] cardio/Dr Britton Adrenal adenoma - just monitoring - no longer following with endocrine - has had work up with 24 hour urine metanephrines, catecholamines, and creatinine (01/2022 all WNL) Moderate left ventricular hypertrophy Varicose vein of leg [facility] vascular visit 01/03/24 Hypertension History of COVID-24 Apr 2022- no current issues Surgical History Status post reverse total arthroplasty of left shoulder (06/2023) History of section twins Status post right foot surgery hammertoe correction R 5th toe H/O tubal ligation History of surgery of liver tumor removal at History of bunionectomy of right great toe H/O dilation and curettage H/O total hysterectomy + USO History of esophagogastroduodenoscopy Hx of cholecystectomy H/O umbilical hernia repair H/O colonoscopy Family History Mother Asthma Cancer basal cell Heart disease Grandmother (Maternal) Heart disease Grandfather (Paternal) Heart disease Aunt Breast cancer Social History Smoking Status: Former smoker Tobacco Type: Cigarettes Smoking End Date: quit 32 yrs ago; Second Hand Exposure: No; Do You Dip or Chew Tobacco: No; Tobacco Cessation Education Requested by Patient: No Hx Alcohol Use: No Hx Substance Use: No Preferred Language: Mohawk Communication Ability: Effective Free Lance Artist Required: No Beliefs That Will Affect Care: None marital status: Current Living Situation: Spouse current occupational status: employed 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 Physical Exam On physical exam of the right shoulder, she has about 120 degrees forward elevation 120 degrees of abduction. She has weakness throughout.. Constitutional WD/WN, vitals as above Eyes PERRL, conjunctivae normal, anicteric sclerae ENMT external ear and nose normal, oropharynx normal Neck trachea midline, no thyromegaly Respiratory normal respiratory effort Cardiovascular RRR, no murmur, no edema Gastrointestinal (Abdomen) normal bowel sounds, soft, nontender, no hepatosplenomegaly Psychiatric A+Ox3, euthymic affect Results & Data Results & Data Laboratory Results . Diagnostic Findings MRI of the right shoulder shows a massive retracted rotator cuff tear involving the entire supraspinatus and subscapularis. She retracted back to the level the glenoid.. PG Care Time/CCT Total # of Minutes Spent Total Time Spent with Patient: Total time spent is greater than 50% in coordination of care (as documented) at patient's floor/unit and/or counseling patient: Coding Level of Care Code None Diagnoses Right rotator cuff tear arthropathy M75.101; M12.811
[2024-02-08] MEDS: ACETAMINOPHEN 500 MG TAB PO SCH ×2 (10:37→21:52)
[2024-02-08] MEDS: LR 60ML/HR IV SCH (10:37)
[2024-02-08] MEDS: LR 500ML BOLUS, THEN 15ML/HR IV SCH (10:37)
[2024-02-08] MEDS: GABAPENTIN 300 MG CAP PO SCH (10:38)
[2024-02-08] MEDS: dexAMETHasone**PF** 10 MG/ML VIAL IV SCH (10:38)
[2024-02-08] MEDS: FAMOTIDINE 20 MG TAB PO SCH (10:38)
--- NOTE | 2024-02-08 11:11 | History & Physical Bridge Note ---
Date of Service February 08, 2024 History & Physical Bridge Note I have examined the patient, reviewed the History & Physical and in the interval since the performance of the History & Physical I have noted the following changes of clinical significance: no changes noted
[2024-02-08] MEDS ORDERED: LIDOCAINE 2% 2 ML VIAL/AMP(20MG/ML) INFIL ONE (11:35)
[2024-02-08] MEDS ORDERED: PROPOFOL IV EMULSION 10 MG/ML 20 ML VIAL IV ONE (11:35)
[2024-02-08] MEDS ORDERED: MIDAZOLAM HCL 1 MG/ML 2ML VIAL ONE (11:35)
[2024-02-08] MEDS ORDERED: ONDANSETRON INJ 2 MG/ML 2 ML VIAL ONE (11:35)
[2024-02-08] MEDS ORDERED: DEXAMETHASONE SOD INJ 4 MG/ML VIAL ONE (11:35)
[2024-02-08] MEDS ORDERED: fentaNYL citrate PF 100 MCG/2 ML VIAL ONE (11:35)
[2024-02-08] MEDS ORDERED: fentaNYL citrate PF 100 MCG/2 ML VIAL IV PRN (11:39)
[2024-02-08] MEDS ORDERED: ATROPINE SULFATE 0.1 MG/ML 10ML SYR IV PRN (11:39)
[2024-02-08] MEDS ORDERED: ePHEDrine sulfate 50 MG/ML AMP IV PRN (11:39)
[2024-02-08] MEDS ORDERED: ONDANSETRON INJ 2 MG/ML 2 ML VIAL IV PRN ×2 (11:39→15:58)
[2024-02-08] MEDS ORDERED: HYDROmorphone INJ 1 MG/ML SYRINGE IV PRN (11:39)
[2024-02-08] MEDS: TRANEXAMIC ACID 1,000 MG **IV Pre-op IV SCH (12:03)
[2024-02-08] MEDS: ceFAZolin 2000MG 2,000 MG/15 ML SYR IV SCH ×2 (12:14→21:40)
[2024-02-08] MEDS: ORTHO JOINT ANESTHETIC ONE (12:52)
[2024-02-08] MEDS: ROPIV 0.5% 246mg, Ketorolac 30mg, EPINEPHrine 0.5mg in NSS INFIL SCH (12:52)
[2024-02-08] MEDS: TRANEXAMIC ACID 1,000 MG **IV Intra-op IV SCH (13:10)
--- NOTE | 2024-02-08 13:16 | Operative Report ---
PG Post Operative Report Pre & Post Diagnosis Operation Date: 02/08/24 12:00 Pre-Op Diagnosis: Cuff tear arthropathy of the right shoulder with tendinopathy long head of the biceps tendon Post-Op Diagnosis: Cuff tear arthropathy of the right shoulder with tendinopathy long head of the biceps tendon I identified the patient and participated in the time-out.: Yes Procedure Operation Date: 02/08/24 12:00 Actual Procedures p Right Reverse Total Shoulder Arthroplasty(Right) with open biceps tenodesis as a distinct and separate procedure (modifier 59)- Justin Felipe DO Surgeon Justin Felipe DO Note Teller Justin Gorman PA-C Estimated Blood Loss 200 Findings Consistent with Post-Op Diagnosis Specimens Right humeral head Description of Procedure A CPT code modifier 59: The long head of the biceps tendon was enlarged and inflamed consistent with tendinopathy. A tenodesis was opted. This was a separate and distinct portion of the procedure. For these reasons, a CPT code modifier 59 will be added to this case. Implants used: I used a [employer] Comprehensive reverse total shoulder arthroplasty system with a size 11 press fit micro humeral stem, a +6 offset humeral tray and a +3 retentive humeral bearing, a 25 mm baseplate with a 6.5 mm central screw and superior and inferior locking screws, and a size 36 mm eccentric glenosphere. Taya arrived at [facility] for the above procedure. She was seen in the preoperative holding area and the operative extremity was identified and signed. She was given a preoperative antibiotic, TXA, and an interscalene nerve block. She was taken back to the operating room, laid on table in supine position, and put under general anesthesia. She was then put into the beachchair position. The shoulder was then prepped and draped in sterile fashion. A timeout was done and the patient and the operative extremity was properly identified. A deltopectoral approach was used. Dissection was taken down through the fascia and the deltoid was retracted laterally and the conjoined tendon was retracted medially. The anterior shoulder was exposed. The biceps groove was opened up and the biceps tendon was examined extensively. The biceps tendon demonstrated enlargement and inflammatory changes consistent with longstanding inflammation in the context of osteoarthritis and cuff arthropathy. The long head of the biceps tendon was then tenodesed to the upper border of the pectoralis major. This was a separate and distinct portion of the procedure. The subscapularis was then directly released off the lesser tuberosity with a peel technique. The inferior capsule was released and the humeral head was dislocated. A canal finding reamer was sent down the center of the humeral canal. Sequential reaming up to a size 11 reamer was done. Off that reamer, a proximal humeral resection guide was placed. The proximal humerus was resected at 135 of inclination and 25 of retroversion. Osteophytes were then removed and the glenoid was exposed. Time was spent doing a complete capsular and labral release. The glenoid guide was then placed in the inferior aspect of the glenoid. A 3.2 mm Steinmann pin was then placed into the glenoid vault at 10 of inclination. The glenoid baseplate was then reamed. The final size 25 mm baseplate was then impacted in the place. A 6.5 mm central screw was then placed followed by superior and inferior locking screws. A 36 mm eccentric glenosphere was then impacted into place. Surrounding soft tissues were then injected with 100 cc an orthopedic pain control cocktail. The proximal humerus was then exposed. Sequential broaching of the humerus up to a size 11 broach was done. Off that broach a +6 offset and +3 retentive humeral tray was trialed. The shoulder was then reduced, brought through a full range of motion, and felt to be stable. The shoulder was then dislocated and the broach was removed. The final size 11 micro press-fit humeral stem was then impacted into place. A +3 retentive humeral bearing was then snapped onto a +6 offset humeral tray. The humeral tray was then impacted onto the humeral stem. The shoulder was once again reduced, brought through a full range of motion, and felt to be stable. Subscapularis was poor quality and unable to be repaired. A dilute betadyne lavage was then done for 3 minutes. The joint was then irrigated with normal saline solution. Hemostasis was obtained. The interval was closed with 2-0 Vicryl suture. The skin was then closed with 2-0 Vicryl and nisha. A Silverlon dressing was placed and the arm was rested in a regular arm sling. She was then extubated and transferred to a hospital bed. She taken to the postanesthesia care unit in stable condition. She tolerated the procedure well. Justin Sherif, PA-C, was present for the entire procedure. He was critical for patient positioning, prepping, draping, retraction exposure, wound closure and application of sterile dressing. I attest to the content of the Intraoperative Record and any orders documented therein. Any exceptions are noted below.
[2024-02-08] MEDS ORDERED: PHENYLEPHRINE 100MCG/ML 10ML SYR IV ONE (13:23)
--- NOTE | 2024-02-08 14:11 | Anesthesiology Progress Note ---
Date of Service February 08, 2024 Anesthesia Post Procedure Vital Signs Vital Signs: Temp Pulse Pulse Resp BP Pulse Ox O2 Del Method 02/08/24 14:10 36.4 C L 88 19 131/67 93 Room Air 02/08/24 14:00 87 19 129/70 92 Room Air 02/08/24 13:50 94 H 17 141/77 H 97 Oxymask 02/08/24 13:40 96 H 17 146/75 H 98 Oxymask 02/08/24 13:31 36.1 C L 93 H 15 133/64 93 Oxymask 02/08/24 10:11 36.8 C 78 18 118/66 100 Room Air O2 Flow Rate 02/08/24 14:10 02/08/24 14:00 02/08/24 13:50 2 02/08/24 13:40 12 02/08/24 13:31 12 02/08/24 10:11 Transfer of Care Handoff Completed per policy Notes Mental Status: alert / awake / arousable and participated in evaluation Patient Amnestic to Procedure: Yes Nausea / Vomiting: improving with treatment Pain: adequately controlled and improving with treatment Airway Patency, RR, SpO2: stable & adequate BP & HR: stable & adequate Hydration State: stable & adequate Anesthetic Complications: no major complications apparent and Pt Satisfied with anesthetic care Notes: Pt interscalene block is functioning well. Arm in sling
--- NOTE | 2024-02-08 14:24 | XRay Report ---
XR shoulder RT min 2V routine CLINICAL HISTORY: Post shoulder surgery COMPARISON: Right shoulder radiographs October 16, 2023. MRI of the right shoulder November 03, 2023. FINDINGS: Alignment of the reverse total right shoulder arthroplasty is anatomic. There is no peripr osthetic fracture or unexpected radiopaque foreign body. There are skin nisha. IMPRESSION: Expected findings following reverse total right shoulder arthroplasty. ACT 112: Negative or not required by law. Electronically signed by: Jeyson Keene M.D. 02/08/2024 2:22 PM
--- NOTE | 2024-02-08 14:28 | Anesthesiology Progress Note ---
Date of Service February 08, 2024 Anesthesia Post Procedure Vital Signs Vital Signs: Temp Pulse Pulse Resp BP Pulse Ox O2 Del Method 02/08/24 14:20 90 21 126/66 95 Room Air 02/08/24 14:10 36.4 C L 88 19 131/67 93 Room Air 02/08/24 14:00 87 19 129/70 92 Room Air 02/08/24 13:50 94 H 17 141/77 H 97 Oxymask 02/08/24 13:40 96 H 17 146/75 H 98 Oxymask 02/08/24 13:31 36.1 C L 93 H 15 133/64 93 Oxymask 02/08/24 10:11 36.8 C 78 18 118/66 100 Room Air O2 Flow Rate 02/08/24 14:20 02/08/24 14:10 02/08/24 14:00 02/08/24 13:50 2 02/08/24 13:40 12 02/08/24 13:31 12 02/08/24 10:11 Transfer of Care Handoff Completed per policy Notes Mental Status: alert / awake / arousable Patient Amnestic to Procedure: Yes Nausea / Vomiting: adequately controlled Pain: adequately controlled Airway Patency, RR, SpO2: stable & adequate BP & HR: stable & adequate Hydration State: stable & adequate Anesthetic Complications: no major complications apparent
[2024-02-08 15:57] VITALS: RESP 16
[2024-02-08] MEDS ORDERED: bisacodyL 10 MG SUPP PR PRN (15:58)
[2024-02-08] MEDS ORDERED: NALOXONE HCL 0.4 MG/1 ML VIAL/CARP IV PRN (15:58)
[2024-02-08] MEDS ORDERED: TRIAMCINOLONE ACET 0.1% OINT 15 GM TUBE TOP PRN (15:58)
[2024-02-08] MEDS ORDERED: HYDROmorphone INJ 0.5 MG/0.5 ML SYR IV PRN (15:58)
[2024-02-08] MEDS ORDERED: oxyCODONE HCL IR 5 MG TAB (IMMEDIATE RELEASE) PO PRN (15:58)
[2024-02-08] MEDS ORDERED: PHARMACY GLYCEMIC MGMT CONSULT PRN (15:58)
[2024-02-08] MEDS ORDERED: METOCLOPRAMIDE HCL INJ 5 MG/ML 2 ML VIAL IV PRN (15:58)
[2024-02-08] MEDS ORDERED: MAGNESIUM HYDROXIDE SUSP 30 ML UDC PO PRN (15:58)
[2024-02-08] MEDS: SODIUM CHLORIDE 0.9% 1,000 ML IV SCH (18:16)
[2024-02-08] MEDS: INSULIN ASPART PER UNIT CHARGE SC SCH (18:17)
[2024-02-08] MEDS: LANTUS PER UNIT CHARGE SC ONE (18:40)
[2024-02-08] MEDS: KETOROLAC TROMETHAMINE 15 MG/ML VIAL IV SCH (18:40)
[2024-02-08] MEDS: SENNA 8.6 MG TAB PO SCH (21:52)
[2024-02-08] MEDS: DOCUSATE SODIUM 100 MG CAP PO SCH (21:53)
--- NOTE | 2024-02-09 06:59 | Orthopedic Progress Note ---
Date of Service February 09, 2024 Assessment & Plan (1) Status post reverse total replacement of right shoulder: Overall she is doing very well. She is not having much pain in the right shoulder. She will be seen by physical therapy today for ambulation and range of motion exercises. She can be discharged home later today. She will follow- up orthopedics in 2 weeks. Tiffani garrison was seen and examined at bedside this morning. Overall she is doing very well. She is not having much pain in the right shoulder. She has been up and ambulating to the bathroom. She has no complaints. Review of Systems All systems reviewed & are unremarkable except as noted in HPI & below. Physical Exam On physical examination of the right shoulder, the dressing is clean and dry. She is wearing her sling as instructed. The nerve block is still in effect.. Results & Data Results & Data Laboratory Results . Diagnostic Findings Postoperative x-rays of the right shoulder show the prosthesis to be in anatomic alignment without any evidence of fracture complication, or loosening.. PG Care Time/CCT Total # of Minutes Spent Total Time Spent with Patient: Total time spent is greater than 50% in coordination of care (as documented) at patient's floor/unit and/or counseling patient: Coding Level of Care Code 51535 Post Operative Follow-Up Diagnoses Status post reverse total replacement of right shoulder Z96.611
--- NOTE | 2024-02-09 06:59 | Discharge Summary ---
Date of Service February 09, 2024 Admission HPI (Per Admitting) Taya is a pleasant 63-year-old female who I did a left reverse shoulder replacement on 6 months ago. She has done very well with that. Unfortunately, she is really struggling with the right shoulder. She is having trouble doing things away from her body and up over her head. She examined like a large rotator cuff tear. MRI and clinical examination were diagnostic for massive retracted rotator cuff tear and cuff tear arthropathy of the right shoulder. After failing conservative treatment, she has elected proceed with a right reverse shoulder arthroplasty. Admission Exam (Per Admitting) On physical exam of the right shoulder, she has about 120 degrees forward elevation 120 degrees of abduction. She has weakness throughout.. Principal Diagnosis Same as "Discharge Diagnosis" noted below under Discharge Instructions. Discharge Exam On physical examination of the right shoulder, the dressing is clean and dry. She is wearing her sling as instructed. The nerve block is still in effect.. Discharge Data Procedures Performed Operation Date: 02/08/24 12:00 Actual Procedures p Right Reverse Total Shoulder Arthroplasty(Right) - Justin Felipe DO Ordered Studies 02/08/24 05:00 US - OR guided needle placemen Routine Hospital Course (1) Status post reverse total replacement of right shoulder: On February 08, 2024 taya arrived at [facility] and underwent a right reverse shoulder replacement without complication. She had a general anesthetic and a right interscalene nerve block. Postoperatively she was placed in a sling and transferred to the general orthopedic floors. Her hospital course was uneventful. On postop day #1, her vital signs were stable and her pain was well-controlled. She was able to participate well with physical therapy doing ambulation and range of motion exercises. She was then discharged to home. She will follow-up with orthopedics in 2 weeks.. PG Care Time/CCT Total # of Minutes Spent Total Time Spent with Patient: Total time spent is greater than 50% in coordination of care (as documented) at patient's floor/unit and/or counseling patient: Discharge Plan Discharge Items Patient Disposition: Home - Self-Care Reason For Visit: Right Shoulder Arthritis Discharge Diagnosis: Right reverse shoulder replacement Activity: Per Instructions section Non-emergency contact: Surgeon Call non-emergency contact if: your wound has increased redness and your wound has increased drainage Follow-up/Referrals: Mishel Bai DO [Primary Care Provider] - Diet: Regular Addtl Attending Provider Instructions: Activity and Therapy Recommendations: * If you are using [facility] then therapy will be provided at your home until they feel you have accomplished all of your goals. * If you are using [facility] then Physical Therapy will be provided until they feel you are ready to start Outpatient Physical Therapy. * If you are not using home therapy then Outpatient Physical Therapy should start about 3-5 days from your day of surgery. Therapy will last about 8-12 weeks * Wear your sling for 3 weeks, unless otherwise instructed. You may remove your sling to shower and to dress, but otherwise, you should be in your sling at all times, including while sleeping * The shoulder replacement is very stable and you can use your hand while in the sling * You were shown a series of exercises in the hospital. Do these exercises daily including the exercises you were shown in physical therapy. Medications: * Narcotic You will likely be sent home from the hospital with a prescription for the narcotic pain medication that worked best throughout your stay. * Cefadroxil -take the antibiotic twice a day for 10 days to help prevent infection. * Other medications may be prescribed for specific circumstances. If you have any questions, please call the office at . * Resume previous home medications unless otherwise instructed Dressing Care: Leave the Silverlon dressing in place for 7 days. After 7 days you may remove the dressing. If the incision is not draining then you may leave the nisha open to air. If there is a little bit of drainage or if the nisha are getting stuck on your clothing then cover the incision with a dry dressing. The nisha will be removed at your 2 week follow-up appointment. Showering: You may shower with the Silverlon dressing in place. Do not let the shower spray hit the dressing directly. Pat the Silverlon dressing dry. If the dressing becomes wet underneath, then simply remove the dressing. Keep the incision dry until you are 7 days out from the day of surgery. After 7 days you may remove the Silverlon dressing and shower with the nisha exposed. Let soapy water run over the nisha and pat them dry. Do not scrub or soak the incision. Diet: You may resume your previous diet. Things To Watch For: * Drainage from the incision site that occurs more than one week after your s urgery. * Increased redness at the incision site. * Fever above 102 degrees Fahrenheit. * Unusual chest pain or shortness of breath. * Call [facility] at with any of the above problems Follow-Up Visit: Follow-up with Dr. Felipe's PA (Justin Gorman) 2-3 weeks after your day of surgery. He will remove your nisha and answer any questions. If you have any additional questions or concerns, Dr Felipe is usually in the office at the same time and will be available An appointment was probably scheduled when you signed-up for surgery in the [facility]. If you have any questions call More detailed instructions as well as Frequently Asked Questions were provided in a folder by our office when you signed-up for surgery. Please review these instructions when you get home. If you have any further questions or concerns, please feel free to call the office at [phone] Pending Studies at Discharge: No Stand-Alone Forms: My [facility] Medications and DC Order Prescriptions: New cefadroxil 500 mg capsule 500 mg PO BID 10 Days Qty: 20 0RF oxycodone 5 mg tablet 5 mg PO Q6H PRN (Reason: pain) Qty: 30 0RF Continued nystatin 100,000 unit/gram powder 1 applic topical DAILY Qty: 60 0RF triamcinolone acetonide 0.1 % ointment 1 applic topical BID PRN (Reason: Rash) Qty: 80 1RF cholecalciferol (vitamin D3) 25 mcg (1,000 unit) capsule 25 mcg PO DAILY 90 Days Qty: 90 0RF metformin 1,000 mg tablet 1,000 mg PO BID Qty: 180 0RF Mounjaro 10 mg/0.5 mL pen injector 10 mg subcut .weekly Qty: 6 1RF Mounjaro 7.5 mg/0.5 mL pen injector 7.5 mg subcut .weekly Qty: 2 0RF Patient Comments: MONDAYS (DME) lancets [OneTouch Delica Lancets] 33 gauge misc See Rx Instructions .Route Qty: 100 3RF Rx Instructions: As directed; once daily e11.9 (DME) OneTouch Verio test strips Strip See Rx Instructions .Route Qty: 100 3RF Rx Instructions: As directed; once daily dx: e11.9 oxybutynin chloride 5 mg tablet 5 mg PO DAILY Qty: 30 2RF lisinopril 5 mg tablet 5 mg PO DAILY atorvastatin 10 mg tablet 10 mg PO QPM Qty: 90 3RF Discharge Orders: Discharge Order (Routine); Ordered 02/09/24 Ordered By: Justin Felipe Admission Data Admit Date/Time: 02/08/24 13:31 Attending Provider: Justin Felipe Admit Provider: Justin Felipe Primary Care Provider: Mishel Bai
[2024-02-09] MEDS: MULTIVITAMIN TAB PO SCH (08:29)
[2024-02-09] MEDS: oxyBUTYnin chloride 5 MG TAB PO SCH (08:29)
[2024-02-09] MEDS: lisinopril 5 MG TAB PO SCH (08:29)
[2024-02-09] MEDS: NYSTATIN POWDER 15GM BTL EXT SCH (08:31)
[2024-02-09 09:23] VITALS: BP 136/69; PULSE 78; TEMP 97.9; O2SAT 94
== END 2024-02-09 14:15 | disposition home or self-care (01) ==
LOC: ASU 09:35 → PACUINP 09:35 → 3E 17:05